=== PATIENT | female | born 1940 | race Native Hawaiian/Other Pacific Islander ===

== ENCOUNTER 2022-08-30 20:40 | Emergency (ER) | payer OTHER ==
[~2022-08-30] VITALS: Ht 160 cm; Wt 63.5 kg
[2022-08-30 20:40] VITALS: BP 173/77; TEMP 98
[2022-08-30 21:24] LABS: PLATELET COUNT 279 K/uL (152-353)
[2022-08-30 21:31] LABS: POTASSIUM 3.4 mmol/L (3.6-5.2)
[2022-08-31] MEDS ORDERED: ASPIRIN 8181 MG PO (10:03)
[2022-08-31] MEDS ORDERED: BUPROPION HCL PO (10:05)
[2022-08-31] MEDS ORDERED: [UNRECOGNIZED DRUG - CODE] PO (10:07)
[2022-08-31] MEDS ORDERED: HOUSE SUPPLEMENT PO (10:08)
[2022-08-31] MEDS ORDERED: MULTIVITAMIN AD1 TA2 PO (10:08)
[2022-08-31] MEDS ORDERED: MIRALAX17 GM PO (10:11)
[2022-08-31] MEDS ORDERED: DIVA250T PO (10:15)
[2022-08-31] MEDS ORDERED: DQZATE100 MG PO (10:15)
[2022-08-31] MEDS ORDERED: LOSA50TA PO (10:16)
[2022-08-31] MEDS ORDERED: TYLENOL325 MG PO ×2 (10:18→10:30)
[2022-08-31] MEDS ORDERED: ANTACI2 PO (10:19)
[2022-08-31] MEDS ORDERED: DIPH25CA90 PO (10:20)
[2022-08-31] MEDS ORDERED: BISA10SU8 RE (10:21)
[2022-08-31] MEDS ORDERED: FLEET ENEMA RE (10:23)
[2022-08-31] MEDS ORDERED: GUAIFENESIN DM PO (10:25)
[2022-08-31] MEDS ORDERED: IMODIUM A-D2 MG PO (10:27)
[2022-08-31] MEDS ORDERED: ALUM-67 PO (10:28)
[2022-08-31] MEDS ORDERED: MAGNSUS68 PO (10:29)
[2022-08-31] MEDS ORDERED: ONDA4TAB3 PO (10:31)
== END 2022-08-30 22:20 | disposition still patient (30) ==
LOC: ED 20:40
PROVIDERS: Emergency Medicine Emergency Medical Services
DX: F03.911 Unspecified dementia, unspecified severity, with agitation (principal); Z11.52 Encounter for screening for COVID-19; Z04.6 Encounter for general psychiatric examination, requested by authority
CPT/HCPCS: 36415; 80053; 85027; 87635; 93005; 99283; U0003